=== PATIENT | female | born 1985 | race Caucasian/White ===

== ENCOUNTER 2019-12-15 18:08 | Emergency (ER) | payer BC ==
[2019-12-15] MEDS ORDERED: Sodium Chloride 0.9% 2.5 ML Syringe FLUSH PRN (18:40)
[2019-12-15] MEDS ORDERED: Sodium Chloride 0.9% 10 ML Syringe FLUSH PRN (18:40)
[2019-12-15] MEDS ORDERED: Morphine 4 MG/ML Syringe IVPUSH ONE (18:40)
--- NOTE | 2019-12-15 19:01 | EDM.PDOC ---
<Sheldon,Nabor - Last Filed: 12/15/19 19:03> ED HPI GENERAL MEDICAL PROBLEM - General Chief Complaint: Back Pain or Injury Stated Complaint: lower back pain-15wks pregn. Time Seen by Provider: 12/15/19 18:23 - History of Present Illness INITIAL COMMENTS - FREE TEXT/NARRATIVE: 34-year-old female at 15 weeks gestation by first trimester ultrasound presenting with midline and bilateral paraspinal lower back discomfort just superior to the sacrum. No radiculopathy no urinary or bowel incontinence the symptoms worsen with hard urination and attempted defecation no frontal abdominal pain no dysuria no suprapubic pain no vaginal bleeding or discharge no chest pain or shortness of breath. Symptoms worsen with changes in position. Patient reports that she is here trying to move her and her out of their apartment she is also still breast-feeding and cosleeping with their 1-year-old. She reports no comfortable position over the last few days. She has been trying Tylenol but it is no longer providing relief. 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 Neurological History: Reports: Migraines Psychiatric History: Reports: Anxiety, Depression - Infectious Disease History Infectious Disease History: Reports: Chicken Pox - Past Surgical History Female Surgical History: Reports: Section, Oophorectomy, Other (See Below) Other Female Surgeries/Procedures: Cyst Removal Social & Family History - Family History Family Medical History: Noncontributory - Tobacco Use Smoking Status *Q: Current Every Day Smoker Years of Tobacco use: 16 Packs/Tins Daily: 0.1 - Recreational Drug Use Recreational Drug Use: No ED ROS GENERAL - Review of Systems Review Of Systems: See Below Free Text/Narrative/Comment: General: No fever. Skin: No rash. Eyes: No vision problems. ENT: No sore throat. Neck: No neck stiffness. Respiratory: No shortness of breath. Cardiac: No chest pain. Gastrointestinal: No nausea, vomiting or abdominal pain. Urinary: No dysuria. Musculoskeletal: Per HPI Neurologic: No headache. ED EXAM, GENERAL - Physical Exam Exam: See Below Free Text/Narrative:: General Appearance: No acute distress, appears comfortable Skin: No rash HEENT: Normocephalic/atraumatic, sclera anicteric, mucous membranes moist Neck: Normal range of motion Chest and Lungs: Bilateral breath sounds, clear to auscultation Cardiovascular: Regular rate and rhythm, no murmur Abdomen: Soft, non-tender Back: No midline tenderness paraspinal tenderness or step-off no CVA tenderness Musculoskeletal: No edema or tenderness Neurologic: Awake, alert, no obvious deficits, moving all extremities Psychiatric: Appropriate, cooperative Departure - Departure Disposition: Home, Self-Care 01 Clinical Impression: Low back strain - Discharge Information Instructions: Lumbosacral Strain Referrals: PCP,None [Primary Care Provider] - Forms: ED Department Discharge Additional Instructions: [facility] - Primary Care [address] [place] [address] [place] [address] The following information is given to patients seen in the emergency department who are being discharged to home. This information is to outline your options for follow-up care. We provide all patients seen in our emergency department with a follow-up referral. The need for follow-up, as well as the timing and circumstances, are variable depending upon the specifics of your emergency department visit. If you don't have a primary care physician on staff, we will provide you with a referral. We always advise you to contact your personal physician following an emergency department visit to inform them of the circumstance of the visit and for follow-up with them and/or the need for any referrals to a consulting specialist. The emergency department will also refer you to a specialist when appropriate. This referral assures that you have the opportunity for follow-up care with a specialist. All of these measure are taken in an effort to provide you with optimal care, which includes your follow-up. Under all circumstances we always encourage you to contact your private physician who remains a resource for coordinating your care. When calling for follow-up care, please make the office aware that this follow-up is from your recent emergency room visit. If for any reason you are refused follow-up, please contact the [facility] Emergency Department at and asked to speak to the emergency department charge nurse. Sepsis Event Note (ED) - Evaluation Sepsis Screening Result: No Definite Risk - Assessment/Plan Assessment:: 34-year-old female presenting with signs and symptoms most consistent with musculoskeletal lower back pain pyelonephritis considered in urine basic blood work pending. No vaginal bleeding or discharge nothing that would suggest intrauterine infection no concern for ectopic given her normal first trimester ultrasound. No signs of cord compression or cauda equina no concern for aortic dissection. Given patient's failure to improve with Tylenol single dose of morphine provided but we discussed that would not want to start her on narcotics at this point. There was single dose will be safe at this point in her . Results are pending and patient signed out to Dr. Peña pending reassessment and final disposition. <Lexx Peña - Last Filed: 12/15/19 19:12> Course - Vital Signs Text/Narrative:: In the face of no leuk esterase no nitrite and no red or white cells in the urine appearance of 1+ bacteria and a clean-catch specimen is not an alarm. The patient will be discharged in satisfactory condition with mechanical treatment for back pain. Last Recorded V/S: Last Vital Signs Temp 97.6 F 12/15/19 18:17 Pulse 85 12/15/19 18:17 Resp 16 12/15/19 18:17 BP 102/75 12/15/19 18:17 Pulse Ox 99 12/15/19 18:17 - Orders/Labs/Meds Orders: Active Orders 24 hr Category Date Time Status BASIC METABOLIC PANEL,BMP [CHEM] Stat Lab 12/15/19 18:55 Received Sodium Chloride 0.9% [Saline Flush] Med 12/15/19 18:40 Active 10 ml FLUSH ASDIRECTED PRN Sodium Chloride 0.9% [Saline Flush] Med 12/15/19 18:40 Active 2.5 ml FLUSH ASDIRECTED PRN Saline Lock Insert [OM.PC] Stat Oth 12/15/19 18:40 Ordered Medication Orders Sodium Chloride (Saline Flush) 10 ml FLUSH ASDIRECTED PRN PRN Reason: Keep Vein Open Last Admin: 12/15/19 18:47 Dose: 10 ml Documented by: DUDLEY Sodium Chloride (Saline Flush) 2.5 ml FLUSH ASDIRECTED PRN PRN Reason: Keep Vein Open Last Admin: 12/15/19 18:47 Dose: 2.5 ml Documented by: DUDLEY Labs: Laboratory Tests 12/15/19 12/15/19 12/15/19 Range/Units 18:28 18:28 18:55 WBC 11.44 H (4.0-11.0) K/uL RBC 4.54 (4.30-5.90) M/uL Hgb 13.6 (12.0-16.0) g/dL Hct 39.8 (36.0-46.0) % MCV 87.7 (80.0-98.0) fL MCH 30.0 (27.0-32.0) pg MCHC 34.2 (31.0-37.0) g/dL RDW Std Deviation 43.2 (28.0-62.0) fl RDW Coeff of Elvira 14 (11.0-15.0) % Plt Count 284 (150-400) K/uL MPV 8.90 (7.40-12.00) fL Neut % (Auto) 69.2 (48.0-80.0) % Lymph % (Auto) 23.4 (16.0-40.0) % [place] % (Auto) 5.6 (0.0-15.0) % Eos % (Auto) 1.7 (0.0-7.0) % Baso % (Auto) 0.1 (0.0-1.5) % Neut # (Auto) 7.9 H (1.4-5.7) K/uL Lymph # (Auto) 2.7 H (0.6-2.4) K/uL [place] # (Auto) 0.6 (0.0-0.8) K/uL Eos # (Auto) 0.2 (0.0-0.7) K/uL Baso # (Auto) 0.0 (0.0-0.1) K/uL Nucleated RBC % 0.0 /100WBC Nucleated RBCs # 0 K/uL Urine Color Cancelled YELLOW Urine Appearance Cancelled CLEAR Urine pH Cancelled 5.5 Ur Specific [place] Cancelled 1.010 Urine Protein Cancelled NEGATIVE Urine Glucose (UA) Cancelled NEGATIVE Urine Ketones Cancelled NEGATIVE Urine Occult Blood Cancelled NEGATIVE Urine Nitrite Cancelled NEGATIVE Urine Bilirubin Cancelled NEGATIVE Urine Ictotest Cancelled Urine Urobilinogen Cancelled 0.2 Ur Leukocyte Esterase Cancelled NEGATIVE Urine RBC 0-2 (0-2/HPF) Urine WBC 0-2 (0-5/HPF) Ur Epithelial Cells FEW (NONE-FEW) Urine Bacteria 1+ H (NEGATIVE) Meds: Medications Generic Name Dose Route Start Last Admin Trade Name Bonnie PRN Reason Stop Dose Admin Sodium Chloride 10 ml 12/15/19 18:40 12/15/19 18:47 Saline Flush FLUSH 10 ml ASDIRECTED PRN Administration Keep Vein Open Sodium Chloride 2.5 ml 12/15/19 18:40 12/15/19 18:47 Saline Flush FLUSH 2.5 ml ASDIRECTED PRN Administration Keep Vein Open Discontinued Medications Generic Name Dose Route Start Last Admin Trade Name Freq PRN Reason Stop Dose Admin Morphine Sulfate 4 mg 12/15/19 18:40 12/15/19 18:56 Morphine IVPUSH 12/15/19 18:41 4 mg ONETIME ONE Administration Departure - Departure Time of Disposition: 19:12 Sepsis Event Note (ED) - Focused Exam Vital Signs: Vital Signs Temp Pulse Resp BP Pulse Ox 12/15/19 18:17 97.6 F 85 16 102/75 99
[2019-12-15 19:22] LABS: BLOOD UREA NITROGEN,BUN 8 mg/dL (7.0-18.0); CARBON DIOXIDE,CO2 22.4 mmol/L (21.0-32.0); CHLORIDE,CL 103 mmol/L (98-107); GLUCOSE RANDOM 81 mg/dL (74-106); POTASSIUM,K 3.8 mmol/L (3.5-5.1); SODIUM,NA 137 mmol/L (136-145)
== END 2019-12-15 19:17 | disposition home or self-care (01) ==
LOC: MW.ED 18:08
DX: O9A.212 Injury, poisoning and certain other consequences of external causes complicating pregnancy, second trimester (principal); S39.012A Strain of muscle, fascia and tendon of lower back, initial encounter; O99.332 Smoking (tobacco) complicating pregnancy, second trimester; F17.210 Nicotine dependence, cigarettes, uncomplicated; Z88.2 Allergy status to sulfonamides; Z3A.15 15 weeks gestation of pregnancy
CPT/HCPCS: 36415; 80048; 81001; 85025; 96374; 99283; J2270

== ENCOUNTER 2019-12-17 15:41 | Emergency (ER) | payer BC ==
[2019-12-17] MEDS ORDERED: Acetaminophen 500 MG Tab PO ONE (17:28)
--- NOTE | 2019-12-17 18:08 | EDM.PDOC ---
ED HPI GENERAL MEDICAL PROBLEM - General Chief Complaint: Back Pain or Injury Stated Complaint: LWR BACK PAIN Time Seen by Provider: 12/17/19 17:12 Source of Information: Reports: Patient History Limitations: Reports: No Limitations - History of Present Illness INITIAL COMMENTS - FREE TEXT/NARRATIVE: HISTORY AND PHYSICAL: History of present illness: Patient is a 34-year-old female who presents to the ED today with concern of low back pain that has been ongoing over the past several days. Patient states she was seen in the ED initially 2 days ago and since then has had worsening low back pain. Patient states the back pain is worse with movement but she states it is constant. Patient describes it as a "band-like" sensation on each side of her lower back and into her "tailbone" and does radiate into her left buttock. Patient states she has a history of a bulging disc in the past and her symptoms today feel similar to when she had had a bulging disc in the past. Patient states that she is having more difficulties with sleep and is having to alternate side to side and use a pillow which is hard as she breast feeds a toddler at night. Patient states that she has taken the hydrocodone that was given to her at her prior visit with no relief of symptoms. Patient states she last took a dose of hydrocodone at about 11 this morning and has not taken any pain medication since. Patient denies any trauma or injury of her back. Denies any loss or retention of bowel bladder function or saddle anesthesia. States she is 15 weeks in gestation and has had an ultrasound with her SPLUNK CONSULTANT/physics technician in [place]. Patient states that she has not had any complications with this . Patient denies any vaginal bleeding, change in discharge, or lower abdominal cramping. Patient was seen in the ED on 12/15/2019 and did receive lab work, urinalysis, 4 mg of IV morphine. Patient denies fever, chills, chest pain, shortness of breath, or cough. Denies headache, neck stiff ness, change in vision, syncope, or near syncope. Denies nausea, vomiting, abdominal pain, diarrhea, constipation, or dysuria. Has not noted any blood in urine or stool. Patient has been eating and drinking appropriately. Review of systems: As per history of present illness and below otherwise all systems reviewed and negative. Past medical history: As per history of present illness and as reviewed below otherwise noncontributory. Surgical history: As per history of present illness and as reviewed below otherwise noncontributory. Social history: See social history for further information Family history: As per history of present illness and as reviewed below otherwise noncontributory. Physical exam: General: Patient is alert, oriented, and in no acute distress. Patient sitting comfortably on exam table. HEENT: Atraumatic, normocephalic, pupils equal and reactive bilaterally, negative for conjunctival pallor or scleral icterus, mucous membranes moist, TMs normal bilaterally, throat clear, neck supple, nontender, trachea midline. No drooling or trismus noted. No meningeal signs. No hot potato voice noted. Lungs: Clear to auscultation, breath sounds equal bilaterally, chest nontender. Heart: S1S2, regular rate and rhythm without overt murmur Abdomen: Soft, nondistended, nontender. Negative for masses or hepatosplenomegaly. Negative for costovertebral tenderness. Pelvis: Stable nontender. : Roller Staker at bedside, Aniyah Franco. External genitalia is grossly unremarkable. There is a small amount of white vaginal discharge in the vaginal vault. Negative cervical motion tenderness with negative chandelier sign. Uterus is approximately 15 weeks in size without tenderness. No adnexal tenderness. Rectal: Deferred. Skin: Intact, warm, dry. No lesions or rashes noted. Extremities: No obvious deformity of the complete spine. No step-offs, crepitus, or point tenderness to palpation of the complete spine. Patient does have tenderness with palpation of the left and right paraspinous muscles of the lumbar region and into the superior sacrum. Patient does have limited range of motion of the low back due to pain. Patient did ambulate into the ED today without assistance. Heel/toe gait intact. Patellar reflexes intact bilaterally. Otherwise, atraumatic, negative for cords or calf pain. Neurovascular unremarkable. Neuro: Awake, alert, oriented. Cranial nerves II through XII unremarkable. Cerebellum unremarkable. Motor and sensory unremarkable throughout. Exam nonfocal. Notes: Patient states that she has 3 Erie pills left but asks if I would be willing to prescribe more. I discussed with patient that I will not prescribe any more narcotic medication at this time. Patient does not exhibit emergent symptoms requiring transfer for MRI but strict return precautions discussed with patient. Signs and symptoms that would prompt return to the ED thoroughly discussed with patient. Patient is switching care to be seen by a physics technician in [facility]. Patient states she does not have an appointment until the middle of January. I instructed patient to have a follow-up appointment this next week with a women's health provider whether she can get this done in [place], or if she would like to see a provider here in [place]. These numbers have been provided for her and she has been placed on the expedited follow-up list. Voices understanding and is agreeable to plan of care. Denies any further questions or concerns at this time. Diagnostics: CBC, CMP, UA, Serum hcg qual, [employer]: Tylenol 1g, Topical lidocaine patch Prescription: None Impression: Low back pain in , 2nd trimester Intrauterine , 17 weeks Plan: 1. Please start and/or continue to take your vitamin with folic acid once daily. 2. Tylenol as needed for pain management. This is safe to use in . 3. Follow up with your SPLUNK CONSULTANT this week as discussed. Return to the ED as needed and as discussed. 4. When resting please lay on a flat firm surface. Limit your mobility to prevent muscle stiffness. Get up to ambulate/move around/gentle stretching multiple times throughout the day. Definitive disposition and diagnosis as appropriate pending reevaluation and review of above. Lower Back Pain Score (Numeric/FACES): 8 - Related Data Allergies Allergy/AdvReac Type Severity Reaction Status Date / Time Sulfa (Sulfonamide Allergy Rash Verified 12/15/19 18:19 Antibiotics) Home Meds: Home Meds Acetaminophen/Butalbital/Caff [Fioricet 325-50-40 MG] 1 tab PO ATDISCHARGE PRN 01/28/18 [History] Acetaminophen/HYDROcodone [[place] 325-7.5 MG] 1 tab PO Q6H PRN #12 tablet 12/15/19 [Rx] Pnv No.95/Ferrous Fum/Folic AC [ Caplet] 1 tab PO DAILY 12/15/19 [History] Past Medical History Cardiovascular History: Reports: None Respiratory History: Reports: None Gastrointestinal History: Reports: None Genitourinary History: Reports: UTI, Recurrent SPLUNK CONSULTANT History: Reports: , Spontaneous , Therapeutic , Other (See Below) Other SPLUNK CONSULTANT History: Is 15 weeks Musculoskeletal History: Reports: None Neurological History: Reports: Migraines Psychiatric History: Reports: Anxiety, Depression Hematologic History: Reports: None Immunologic History: Reports: None Oncologic (Cancer) History: Reports: None - Infectious Disease History Infectious Disease History: Reports: C-Difficile, Influenza, Novel Coronavirus - Past Surgical History Female Surgical History: Reports: Section, Oophorectomy, Other (See Below) Other Female Surgeries/Procedures: Cyst Removal Social & Family History - Family History Family Medical History: Noncontributory - Tobacco Use Smoking Status *Q: Current Every Day Smoker Years of Tobacco use: 10 Packs/Tins Daily: 0.5 Used Tobacco, but Quit: No Second Hand Smoke Exposure: No - Caffeine Use Caffeine Use: Reports: Coffee - Recreational Drug Use Recreational Drug Use: No ED ROS GENERAL - Review of Systems Review Of Systems: Comprehensive ROS is negative, except as noted in HPI. ED EXAM, GENERAL - Physical Exam Exam: See Below (see dictation) Course - Vital Signs Last Recorded V/S: Last Vital Signs Temp 97.2 F 12/17/19 16:27 Pulse 74 12/17/19 16:27 Resp 20 12/17/19 16:27 BP 106/36 L 12/17/19 18:27 Pulse Ox 100 12/17/19 16:27 - Orders/Labs/Meds Orders: Active Orders 24 hr Category Date Time Status Communication Order [RC] STAT Care 12/17/19 17:31 Active Labs: Laboratory Tests 12/17/19 12/17/19 12/17/19 Range/Units 18:06 18:06 18:06 WBC 9.50 (4.0-11.0) K/uL RBC 4.15 L (4.30-5.90) M/uL Hgb 12.2 (12.0-16.0) g/dL Hct 36.5 (36.0-46.0) % MCV 88.0 (80.0-98.0) fL MCH 29.4 (27.0-32.0) pg MCHC 33.4 (31.0-37.0) g/dL RDW Std Deviation 44.1 (28.0-62.0) fl RDW Coeff of Elvira 14 (11.0-15.0) % Plt Count 256 (150-400) K/uL MPV 8.70 (7.40-12.00) fL Neut % (Auto) 63.9 (48.0-80.0) % Lymph % (Auto) 28.5 (16.0-40.0) % [place] % (Auto) 5.6 (0.0-15.0) % Eos % (Auto) 1.9 (0.0-7.0) % Baso % (Auto) 0.1 (0.0-1.5) % Neut # (Auto) 6.1 H (1.4-5.7) K/uL Lymph # (Auto) 2.7 H (0.6-2.4) K/uL [place] # (Auto) 0.5 (0.0-0.8) K/uL Eos # (Auto) 0.2 (0.0-0.7) K/uL Baso # (Auto) 0.0 (0.0-0.1) K/uL Nucleated RBC % 0.0 /100WBC Nucleated RBCs # 0 K/uL Sodium 138 (136-145) mmol/L Potassium 3.8 (3.5-5.1) mmol/L Chloride 104 (98-107) mmol/L Carbon Dioxide 23.2 (21.0-32.0) mmol/L BUN 10 (7.0-18.0) mg/dL Creatinine 0.6 (0.6-1.0) mg/dL Est Cr Clr Drug Dosing 133.27 mL/min Estimated GFR (MDRD) > 60.0 ml/min Glucose 72 L (74-106) mg/dL Calcium 9.0 (8.5-10.1) mg/dL Total Bilirubin 0.2 (0.2-1.0) mg/dL AST 11 L (15-37) IU/L ALT 20 (14-63) IU/L Alkaline Phosphatase 41 L (46-116) U/L Total Protein 6.9 (6.4-8.2) g/dL Albumin 3.2 L (3.4-5.0) g/dL Globulin 3.7 (2.6-4.0) g/dL Albumin/Globulin Ratio 0.9 (0.9-1.6) HCG, Qual POSITIVE H (NEG) Urine Color Urine Appearance Urine pH (5.0-8.0) Ur Specific [place] (1.001-1.035) Urine Protein (NEGATIVE) mg/dL Urine Glucose (UA) (NEGATIVE) mg/dL Urine Ketones (NEGATIVE) mg/dL Urine Occult Blood (NEGATIVE) Urine Nitrite (NEGATIVE) Urine Bilirubin (NEGATIVE) Urine Urobilinogen (<2.0) EU/dL Ur Leukocyte Esterase (NEGATIVE) 12/17/19 Range/Units 19:17 WBC (4.0-11.0) K/uL RBC (4.30-5.90) M/uL Hgb (12.0-16.0) g/dL Hct (36.0-46.0) % MCV (80.0-98.0) fL MCH (27.0-32.0) pg MCHC (31.0-37.0) g/dL RDW Std Deviation (28.0-62.0) fl RDW Coeff of Elvira (11.0-15.0) % Plt Count (150-400) K/uL MPV (7.40-12.00) fL Neut % (Auto) (48.0-80.0) % Lymph % (Auto) (16.0-40.0) % [place] % (Auto) (0.0-15.0) % Eos % (Auto) (0.0-7.0) % Baso % (Auto) (0.0-1.5) % Neut # (Auto) (1.4-5.7) K/uL Lymph # (Auto) (0.6-2.4) K/uL [place] # (Auto) (0.0-0.8) K/uL Eos # (Auto) (0.0-0.7) K/uL Baso # (Auto) (0.0-0.1) K/uL Nucleated RBC % /100WBC Nucleated RBCs # K/uL Sodium (136-145) mmol/L Potassium (3.5-5.1) mmol/L Chloride (98-107) mmol/L Carbon Dioxide (21.0-32.0) mmol/L BUN (7.0-18.0) mg/dL Creatinine (0.6-1.0) mg/dL Est Cr Clr Drug Dosing mL/min Estimated GFR (MDRD) ml/min Glucose (74-106) mg/dL Calcium (8.5-10.1) mg/dL Total Bilirubin (0.2-1.0) mg/dL AST (15-37) IU/L ALT (14-63) IU/L Alkaline Phosphatase (46-116) U/L Total Protein (6.4-8.2) g/dL Albumin (3.4-5.0) g/dL Globulin (2.6-4.0) g/dL Albumin/Globulin Ratio (0.9-1.6) HCG, Qual (NEG) Urine Color YELLOW Urine Appearance CLEAR Urine pH 6.0 (5.0-8.0) Ur Specific [place] >= 1.030 (1.001-1.035) Urine Protein NEGATIVE (NEGATIVE) mg/dL Urine Glucose (UA) NEGATIVE (NEGATIVE) mg/dL Urine Ketones TRACE H (NEGATIVE) mg/dL Urine Occult Blood NEGATIVE (NEGATIVE) Urine Nitrite NEGATIVE (NEGATIVE) Urine Bilirubin NEGATIVE (NEGATIVE) Urine Urobilinogen 0.2 (<2.0) EU/dL Ur Leukocyte Esterase NEGATIVE (NEGATIVE) Meds: Medications Discontinued Medications Generic Name Dose Route Start Last Admin Trade Name Eladioq PRN Reason Stop Dose Admin Acetaminophen 1,000 mg 12/17/19 17:28 12/17/19 18:21 Tylenol Extra Strength PO 12/17/19 17:29 1,000 mg ONETIME ONE Administration Lidocaine 700 mg 12/17/19 19:13 12/17/19 19:32 Lidoderm 5% TOP 12/17/19 19:14 700 mg NOW STA Administration Departure - Departure Time of Disposition: 19:56 Disposition: Home, Self-Care 01 Clinical Impression: Intrauterine Low back pain during Qualifiers: Trimester: second trimester Qualified Code(s): O26.892 - Other specified related conditions, second trimester; M54.5 - Low back pain Qualifiers: Weeks of gestation: 17 weeks Qualified Code(s): Z3A.17 - 17 weeks gestation of - Discharge Information Referrals: PCP,None [Primary Care Provider] - Forms: ED Department Discharge Additional Instructions: The following information is given to patients seen in the emergency department who are being discharged to home. This information is to outline your options for follow-up care. We provide all patients seen in our emergency department with a follow-up referral. The need for follow-up, as well as the timing and circumstances, are variable depending upon the specifics of your emergency department visit. If you don't have a primary care physician on staff, we will provide you with a referral. We always advise you to contact your personal physician following an emergency department visit to inform them of the circumstance of the visit and for follow-up with them and/or the need for any referrals to a consulting specialist. The emergency department will also refer you to a specialist when appropriate. This referral assures that you have the opportunity for follow-up care with a specialist. All of these measure are taken in an effort to provide you with optimal care, which includes your follow-up. Under all circumstances we always encourage you to contact your private physician who remains a resource for coordinating your care. When calling for follow-up care, please make the office aware that this follow-up is from your recent emergency room visit. If for any reason you are refused follow-up, please contact the [facility] Emergency Department at and asked to speak to the emergency department charge nurse. [facility] [address] [place] [address] [place] [address] [facility] [address] [place] [address] 1. Please start and/or continue to take your vitamin with folic acid once daily. 2. Tylenol as needed for pain management. This is safe to use in . 3. Follow up with your SPLUNK CONSULTANT this week as discussed. Return to the ED as needed and as discussed. 4. When resting please lay on a flat firm surface. Limit your mobility to prevent muscle stiffness. Get up to ambulate/move around/gentle stretching multiple times throughout the day. Sepsis Event Note (ED) - Evaluation Sepsis Screening Result: No Definite Risk - Focused Exam Vital Signs: Vital Signs Temp Pulse Resp BP Pulse Ox 12/17/19 18:27 106/36 L 10/11/20 16:27 97.2 F 74 20 108/64 100 - My Orders Last 24 Hours: My Active Orders 12/17/19 17:31 Communication Order [RC] STAT - Assessment/Plan Last 24 Hours: My Active Orders 12/17/19 17:31 Communication Order [RC] STAT
[2019-12-17 18:30] LABS: BLOOD UREA NITROGEN,BUN 10 mg/dL (7.0-18.0); CARBON DIOXIDE,CO2 23.2 mmol/L (21.0-32.0); CHLORIDE,CL 104 mmol/L (98-107); GLUCOSE RANDOM 72 mg/dL (74-106); POTASSIUM,K 3.8 mmol/L (3.5-5.1); SODIUM,NA 138 mmol/L (136-145)
--- NOTE | 2019-12-17 18:32 | US ---
HISTORY: Pain. TECHNIQUE: Transabdominal obstetric ultrasound. COMPARISON: None. FINDINGS: Single intrauterine gestation. cardiac activity is present with heart rate 149 beats per minute. Breech position. Placenta is fundal. Amniotic fluid volume is subjectively within normal limits. The following biometric measurements were obtained: Biparietal diameter: 3.4 cm, 16 weeks 3 days. Head circumference: 13.4 cm, 17 weeks 0 days. Abdominal circumference: 10.7 cm, 16 weeks 5 days. Femur length: 2.5 cm, 17 weeks 4 days. IMPRESSION: Single live intrauterine gestation with estimated gestational age 17 weeks 0 days. Dictated by Roland Interiano MD @ Dec 17 2019 6:27PM Signed by Dr. Roland Interiano @ Dec 17 2019 6:31PM
[2019-12-17] MEDS ORDERED: Lidocaine 5% 700 MG Patch TOP STA (19:13)
== END 2019-12-17 20:10 | disposition home or self-care (01) ==
LOC: MW.ED 15:41
DX: O99.891 Other specified diseases and conditions complicating pregnancy (principal); M54.5 Low back pain; O99.332 Smoking (tobacco) complicating pregnancy, second trimester; F17.210 Nicotine dependence, cigarettes, uncomplicated; Z88.2 Allergy status to sulfonamides; Z3A.17 17 weeks gestation of pregnancy
CPT/HCPCS: 36415; 76815; 80053; 81003; 84703; 85025; 99284; A9270; 99283